=== PATIENT | female | born 1985 | race Caucasian/White ===

== ENCOUNTER 2017-04-09 15:43 | Inpatient (IN) | payer OTHER ==
[~2017-04-09] VITALS: Ht 162.6 cm; Wt 49.0 kg
[2017-04-09] MEDS ORDERED: PRENATAL + DHA1 EAC1 (15:57)
== END 2017-04-12 12:32 | DRG 781 ==
LOC: ER 15:43 → OB/GYN 04-10 12:38
DX: O26.891 Other specified pregnancy related conditions, first trimester (principal); N20.1 Calculus of ureter; Z3A.13 13 weeks gestation of pregnancy

== ENCOUNTER 2017-10-14 05:15 | Inpatient (IN) | payer OTHER ==
[~2017-10-14] VITALS: Ht 162.6 cm; Wt 62.6 kg
[~2017-10-14 05:15] MED LIST: PRENATAL + DHA1 EAC1
[2017-10-14] MEDS ORDERED: IRON325 MG PO (05:31)
[2017-10-16] MEDS ORDERED: IBUPROFEN400 MG PO (12:50)
[2017-10-16] MEDS ORDERED: PREPLUS CA-FE1 EACH PO (12:50)
[2017-10-16] MEDS ORDERED: DOCUSATE SODIU100 MG PO (12:50)
[2017-10-16] MEDS ORDERED: Dermoplast SPRAY TOP (12:50)
== END 2017-10-16 12:57 | DRG 775 ==
LOC: LDR 05:15 → OB/GYN 17:19
PROC: 10E0XZZ Delivery of Products of Conception, External Approach (ICD-10-PCS; principal; 2017-10-14)
PROC: 0HQ9XZZ Repair Perineum Skin, External Approach (ICD-10-PCS; 2017-10-14)
PROC: 3E0P7VZ Introduction of Hormone into Female Reproductive, Via Natural or Artificial Opening (ICD-10-PCS; 2017-10-14)
PROC: 3E033VJ Introduction of Other Hormone into Peripheral Vein, Percutaneous Approach (ICD-10-PCS; 2017-10-14)
PROC: 4A033R1 Measurement of Arterial Saturation, Peripheral, Percutaneous Approach (ICD-10-PCS; 2017-10-14)
PROC: 4A1HXCZ Monitoring of Products of Conception, Cardiac Rate, External Approach (ICD-10-PCS; 2017-10-14)
DX: O70.0 First degree perineal laceration during delivery (principal); O99.02 Anemia complicating childbirth; Z3A.39 39 weeks gestation of pregnancy; Z37.0 Single live birth